=== PATIENT | male | born 1945 | race Caucasian/White ===

== ENCOUNTER → 2024-02-19 12:44 | Outpatient (REF) | payer MEDICARE, OTHER, SELFPAY | LOC: RAD 12:44 | PROVIDERS: ATTENDING PHYSICIAN Family Medicine | DX: M25.473 Effusion, unspecified ankle (principal); I83.893 Varicose veins of bilateral lower extremities with other complications | CPT/HCPCS: 93970 ==

== ENCOUNTER 2024-06-08 16:24 | Inpatient (IN) | payer MEDICARE, OTHER, SELFPAY ==
[2024-06-08] VITALS (11 sets, daily range): BP systolic 107–173; BP diastolic 52–88; BMI 28.8; BMI 27.8
[2024-06-08 10:42] LABS: % Basophils 0.4 % (0-2); % Immature Granulocytes 0.7 % (0-0.5); % Monocytes 8.3 % (1.7-9.3); % Neutrophils 82.6 % (42.2-75.2); Absolute Immature Granulocytes 0.1 10^3/uL (0-0.05); Absolute Lymphocytes 0.8 10^3/uL (1.2-3.4); Absolute Monocytes 0.8 10^3/uL (0.1-0.6); Absolute Neutrophils 7.9 10^3/uL (1.4-6.5); Hematocrit 46.7 % (39.0-52.0); Hemoglobin 15.5 g/dL (13.0-18.0); Mean Corp Hgb Conc. 33.2 g/dL (33.0-37.0); Mean Corpuscular Hgb 34.4 pg (27.0-31.0); Mean Corpuscular Volume 103.8 fL (80.0-94.0); Mean Platelet Volume 10.8 fL (7.4-10.4); Nucleated Red Blood Cells % 0 % (-); Platelet Count 151 10^3/uL (130-400); Red Cell Dist. Width 13.3 % (11.5-14.5); White Blood Cell Count 9.6 10^3/uL (4.8-10.8)
[2024-06-08 10:48] LABS: ALT (SGPT) 23 U/L (0-50); AST (SGOT) 29 U/L (17-59); Albumin 4.2 g/dl (3.5-5.0); Alkaline Phosphatase 34 U/L (38-126); Blood Urea Nitrogen 18 mg/dl (9-20); COVID-19 Antigen Negative (Negative); Calcium 9.2 mg/dl (8.4-10.2); Carbon Dioxide 31 mmol/L (22-30); Chloride 102 mmol/L (98-107); Estimated Creatinine Clearance 54 ml/min; Glucose 160 mg/dl (70-99); Potassium 4.4 mmol/L (3.5-5.1); Sodium 140 mmol/L (135-145); Total Bilirubin 0.5 mg/dl (0.2-1.3); Total Protein 6.8 g/dl (6.3-8.2); eGFR > 60.00
--- NOTE | 2024-06-08 11:03 | ED.GENMED ---
History of Present Illness
General
Chief Complaint: Weakness
Time Seen by Provider: 06/08/24 10:12
History of Present Illness
History of Present Illness:
78-year-old male with history of COPD presents to the emergency department via EMS for evaluation of generalized weakness for the past several days as well as tactile fever. Noted to be febrile on arrival. Patient was quite apprehensive to come to
the hospital today as he did not wish to be evaluated however family encouraged him to seek care. He denies any nasal congestion, sore throat, cough, nausea, vomiting, dysuria, or urinary urgency. Family is concerned that he has had significant
difficulty walking due to leg weakness.
Review of Systems
Review of Systems
Allergies reviewed?: Yes
All Other Systems: ROS reviewed and negative except as documented in HPI and ROS
Phy Exam
Physical Exam
Physical Exam:
GEN: Well appearing, NAD, WDWN
Eyes: PERRLA, EOMs intact, no scleral icterus
HENT: NCAT, oral mucosa moist, no JVD, no cervical adenopathy.
Lungs: CTAB, no wheezes, rales, rhonchi, normal chest wall excursion
Cardiac: Mildly tachycardic, regular
Abdomen: S, NT, ND, NABS, no masses or hepatosplenomegaly
Neuro: AO x 3
MSK: No gross deformity or ecchymosis. No edema. No digital clubbing
Skin: No rashes, petechiae. Normal color, no pallor or jaundice.
Psych: Calm, cooperative, proper hygiene
Sepsis
Sepsis Screening
Sepsis Assessment: Sepsis Ruled Out
Sepsis Screen
Sepsis Screen: Sepsis Ruled Out
Date: 06/08/24
Time: 14:59
Course
Orders/Labs/Results
Orders:
Orders
06/08/24 10:12
Electrocardiogram (*1) Urgent
Reason for Study: Fatigue / Weakness
EKG- Treatment ONCE
06/08/24 10:25
COVID-19 Antigen Urgent
Source: Nasal Swab
Complete Blood Count/With Diff Urgent
Comprehensive Metabolic Panel Urgent
Influenza A+B Rapid Molecular Urgent
VASILIY Source: Nasal Swab
Specimen Description:
06/08/24 10:27
CR Chest - 2 Views Urgent
Comment:
Reason For Exam: fever
06/08/24 12:26
Acetaminophen [Tylenol] 650 mg .ROUTE .STK-MED ONE
06/08/24 12:27
Acetaminophen [Tylenol] 650 mg PO NOW STA
06/08/24 12:30
Urinalysis Reflex To Culture Urgent
Date Specimen was Collected: 06/08/24
Time Specimen was Collected: 12:24
Urine Microscopic Reflex Cult Urgent
Urine Culture Urgent
VASILIY Source: U
Specimen Description:
Date Specimen was Collected: 06/08/24
Time Specimen was Collected: 12:24
06/08/24 14:35
CefTRIAXone [Rocephin] 1,000 mg IV NOW STA
Abnormal Lab Results
06/08/24 06/08/24
10:25 12:30
RBC 4.50 L 10^6/uL
(4.70-6.10)
MCV 103.8 H fL
(80.0-94.0)
MCH 34.4 H pg
(27.0-31.0)
MPV 10.8 H fL
(7.4-10.4)
Abs Immat Gran (auto) 0.1 H 10^3/uL
(0-0.05)
Absolute Neuts (auto) 7.9 H 10^3/uL
(1.4-6.5)
Absolute Lymphs (auto) 0.8 L 10^3/uL
(1.2-3.4)
Absolute Monos (auto) 0.8 H 10^3/uL
(0.1-0.6)
Immature Gran % 0.7 H %
(0-0.5)
Neutrophils % 82.6 H %
(42.2-75.2)
Lymphocytes % 8.0 L %
(20.5-51.1)
Carbon Dioxide 31 H mmol/L
(22-30)
Glucose 160 H mg/dl
(70-99)
Alkaline Phosphatase 34 L U/L
(38-126)
Leukocyte Esterase Rfl 2+ A
(Negative)
Urine WBC (Reflex) 21-25 A /HPF
(0-5)
Urine Bacteria (Reflex) Many A
(Negative)
06/08/24 10:25
06/08/24 10:25
Vital Signs
Initial and Last Documented VS:
Initial Vital Signs
Temp Pulse Resp BP Pulse Ox
100.0 F 96 20 124/88 96
06/08/24 10:13 06/08/24 10:13 06/08/24 10:13 06/08/24 10:13 06/08/24 10:13
Last Documented Vital Signs
Temp Pulse Resp BP Pulse Ox
100.0 F 87 17 159/83 94
06/08/24 10:13 06/08/24 14:15 06/08/24 14:15 06/08/24 14:00 06/08/24 14:15
MDM/Problems Addressed
MDM/Problems Addressed:
Patient's labs are for the most part reassuring however UA is consistent with UTI. Given that he is febrile and has significant weakness with ambulation we will admit for IV antibiotics
*Critical Care Note
Total Time (30-74mins, 75-104mins- exclusive of procedures): Not Applicable
ED Attending Note
-
Portions of this chart may have been created with voice recognition software.� Occasional wrong word or��sound alike� substitutions may have occurred due to the inherent limitations of voice recognition software.
Discharge Plan
Departure
Patient Disposition: Admit
Date of Disposition: 06/08/24
Time of Disposition: 14:59
Admit to: Med/Surg
Presentation/result/management discussed w/ accepting MD/DO: Hospitalist
Discharge Problem:
Urinary tract infection
Prescriptions:
No Action
albuterol sulfate [ProAir HFA] 90 mcg/actuation Hfa Aerosol Inhaler
2 puff INHALATION 6XD PRN (Reason: sob)
Anoro Ellipta 62.5-25 mcg/actuation Blister With Device
1 inh INHALATION DAILY
acetaminophen 500 mg Tablet
1,000 mg PO Q6H PRN (Reason: PAIN)
folic acid 1 mg Tablet
1 mg PO DAILY
azelastine 137 mcg (0.1 %) Aerosol,[place]
1 spray INTRANASAL BID PRN (Reason: CONGESTION)
cholecalciferol (vitamin D3) [Vitamin D3] 25 mcg (1,000 unit) Capsule
25 mcg PO DAILY
Referrals:
David Rizzo MD [Family Provider] -
Interventions
Interventions:
*Risk Screen - Suicide Last Done: 06/08/24 10:13
*General Assessment Last Done: 06/08/24 10:13
*Neglect/Abuse Screening Last Done: 06/08/24 10:13
ED- Fall Risk Assessment Last Done: 06/08/24 10:41
*ED COVID-19 Vaccine History Last Done: 06/08/24 10:13
ED- Cardiac Assessment Last Done: 06/08/24 10:41
ED- Neurological Assessment Last Done: 06/08/24 10:41
ED- Pulmonary Assessment Last Done: 06/08/24 10:41
Discharge Date and Time
Print Language: SAMI
[2024-06-08] MEDS: TYLENOL 650 MG PO ×2 (12:27→19:59)
[2024-06-08 13:10] LABS: Urine Albumin Trace (Neg - Trace); Urine Bilirubin Negative (Negative); Urine Character Clear (Clear); Urine Color Yellow; Urine Glucose Negative (Negative); Urine Ketone Negative (Negative); Urine Leukocyte 2+ (Negative); Urine Nitrite Negative (Negative); Urine Occult Blood Negative (Negative); Urine Specific Gravity 1.015 (<1.030); Urine Urobilinogen Negative (Neg - 1+)
[2024-06-08 14:32] LABS: Urine Mucus Few
[2024-06-08 14:33] LABS: Urine Bacteria Many (Negative); Urine Red Blood Cell 0-2 /HPF (0-2); Urine Squamous Cell 0-2 /LPF (Few); Urine White Cell 21-25 /HPF (0-5)
[2024-06-08] MEDS: ROCEPHIN 1000 MG IV (14:55)
--- NOTE | 2024-06-08 15:43 | HPS.HSE ---
Addendum entered and electronically signed by Shiraz Sin MD 06/08/24 16:25:
78-year-old male with a past medical history of BPH, prostate cancer status post TURP and radiation, HTN, nicotine dependency, and daily alcohol presents with fever, generalized weakness for 3-4 days. Denies dysuria, abdominal pain, or vomiting.
He does report pain in his chin for 3-4 days, he had an appointment to go to the dentist. His urine analysis is concerning for a urinary tract infection. Will treat with Rocephin. He has dental caries in the lower mandible near his chin, will add
Flagyl for anaerobic coverage. Consult PT/OT.
I have personally seen and examined the patient, and agree with the plan of care as documented by TORRES Mensah.
Advance care planning discussed, patient is a full code.
All other issues as outlined by the advanced care practitioner.
Total time spent to see the patient on the floor, examine the patient, review data and lab results, discuss treatment plan with patient, nursing staff around 60 minutes.
Original Note:
Family Physician
-
Family Physician: David Rizzo MD
Chief Complaint
-
generalized weakness
History of Present Illness
78-year-old male with history of COPD, hypertension presented to us with generalized weakness and low-grade fever for 3 to 4 days. Patient also complained of jaw pain for past 4 days. Denied headache, dizziness, syncopal episode. Patient does
have a smoker's cough. Denied chest pain or short of breath. Patient denied abdominal pain, nausea, vomiting, diarrhea. Patient denied dysuria materia. Last night he had urinary urgency.
noted to have UTI, received IV ceftriaxone. admitting for further management.
Medical History
Past Medical History
Past Medical History: Reports Other
Additional Past Medical History:
Prostate cancer
Hyperlipidemia
Pulmonary nodules
BPH
Tricuspid wall insufficiency
Hypertension
Pulmonary emphysema
COPD
Past Surgical History: Reports Other
Additional Past Surgical History:
Vasectomy
Bilateral total knee replacement
Bilateral cataract surgery
TURP
Social History
Tobacco: Smoker (20 cigars)
Alcohol: Daily (3 drinks of vodka)
Drug: None
Personal:
Living: With Family
Family History
Family History: Not pertinent
Allergies / Home Medications
Allergies reflects when Allergies were last updated in [facility].
Home Medications with original date entered in [facility]
Allergy/Medication List:
Allergies
Allergy/AdvReac Type Severity Reaction Status Date / Time
No Known Allergies Allergy Verified 06/08/24 10:12
Home Medications
umeclidinium 62.5 mcg-vilanterol 25 mcg/actuation powdr for inhalation (Anoro Ellipta) 1 inh inhalation R DAILY Lung/Breathing Issues 02/15/23
acetaminophen 650 mg tablet,extended release (Tylenol Arthritis Pain) 1,300 mg PO [id number] PRN mild pain 06/08/24
cholecalciferol (vitamin D3) 10 mcg (400 unit) tablet (Vitamin D3) 10 mcg PO DAILY 06/08/24
cyanocobalamin (vitamin B-12) 1,000 mcg tablet 1,000 mcg PO DAILY 06/08/24
folic acid 1 mg tablet 1 mg PO DAILY 06/08/24
hydrochlorothiazide 25 mg tablet 25 mg PO DAILY 06/08/24
losartan 50 mg tablet 50 mg PO DAILY 06/08/24
Review of Systems
-
Constitutional: Reports Fever and Fatigue
EENT: Reports No Symptoms
Respiratory: Reports No Symptoms
Cardiac: Reports No Symptoms
Abdomen/GI: Reports No Symptoms
: Reports Urgency
Musculoskeletal: Reports No Symptoms
Skin: Reports No Symptoms
Neurological: Reports Weakness
Endocrine: Reports No Symptoms
Hematologic/Lymphatic: Reports No Symptoms
Psych: Reports No Symptoms
Physical Exam
Vital Signs
Vital Signs
Temp Pulse Resp BP Pulse Ox
100.6 F H 85 30 147/69 94
06/08/24 15:03 06/08/24 15:00 06/08/24 15:00 06/08/24 15:00 06/08/24 15:00
Physical Exam
General: Well Developed, Well Nourished and No Apparent Distress
HEENT: NormoCephalic, Moist mucous membranes and Atraumatic
Respiratory: Clear
Cardiac: S1/S2 and Regular Rhythm; No Murmur or Rub
GI: Soft, Non Tender, Non Distended and Normal Bowel Sounds; No Organomegaly
Rectal: Deferred by Provider
Musculoskeletal: No Clubbing, No Cyanosis and No Edema
Skin: No Rash
Neuro: AO x 3 and Nonfocal/grossly intact
Psych: Calm
Laboratory Results
-
06/08/24 10:25
06/08/24 10:25
Laboratory Results
Total Bilirubin 0.5 mg/dl (0.2-1.3) 06/08/24 10:25
AST 29 U/L (17-59) 06/08/24 10:25
ALT 23 U/L (0-50) 06/08/24 10:25
Alkaline Phosphatase 34 U/L (38-126) L 06/08/24 10:25
Troponin I Cancelled 06/08/24 10:12
Data Reviewed
-
Diagnostic Radiology: Report Reviewed by me
Lab Data: Labs Reviewed by me
Impression/Plan
-
# Fever likely from UTI
-Urine culture pending
-Ceftriaxone continued
#jaw pain
-ctm
# History of COPD
-Not in acute exacerbation
-Breo continued
# Essential hypertension
HCTZ , losartan continued with hold parameter
# Nicotine dependence
-Smokes cigar
-Denied nicotine patch
# Alcohol dependence
-Drinks 3-4 drinks a day
-Alcohol protocol initiated
-Monitor MSAs score
# DVT prophylaxis
-Lovenox subcu
# CODE STATUS
-Full code
[2024-06-08 17:08] LABS: Erythrocyte Sed Rate 15 mm/hour (0-20)
[2024-06-08 17:12] LABS: Magnesium 1.6 mg/dl (1.6-2.3)
[2024-06-08] MEDS: THIAMINE INJECTION 200 MG IV (19:59)
[2024-06-08] MEDS: FLAGYL 500 MG PO (19:59)
[2024-06-08] MEDS: LOVENOX 40 MG SC (19:59)
[2024-06-09 03:27] LABS: Amphetamines Negative (Negative); Barbiturates Negative (Negative); Benzodiazepines Negative (Negative); Buprenorphine Negative (Negative); Cocaine Negative (Negative); Marijuana Negative (Negative); Methadone Negative (Negative); Methamphetamines Negative (Negative); Opiates Negative (Negative); Phencyclidine Negative (Negative); Tricyclic Antidepressants Negative (Negative)
[2024-06-09] MEDS: FLAGYL 500 MG PO ×3 (04:45→21:00)
[2024-06-09 07:30] VITALS: BP 146/75
[2024-06-09] MEDS: STRIVERDI RESPIMAT 2 PUFF INH (07:45)
[2024-06-09] MEDS: SPIRIVA RESPIMAT 2.5 MCG 2 PUFF INH (07:45)
[2024-06-09] MEDS: TYLENOL 650 MG PO ×3 (08:09→23:48)
[2024-06-09] MEDS: ORETIC 25 MG PO (08:11)
[2024-06-09] MEDS: FOLVITE 1 MG PO (08:11)
[2024-06-09] MEDS: VITAMIN B-12 1000 MCG PO (08:12)
[2024-06-09] MEDS: COZAAR 50 MG PO (08:12)
[2024-06-09] MEDS: THIAMINE INJECTION 200 MG IV ×2 (08:12→21:01)
--- NOTE | 2024-06-09 08:52 | W.PN.HOSP.TC ---
Today's Communication/Plan
-
Continue antibiotics, consult ID
Assessment / Plan
Assessment / Plan
HPI: 78-year-old male with a past medical history of BPH, prostate cancer status post TURP and radiation, HTN, nicotine dependency, and daily alcohol presents with fever, generalized weakness for 3-4 days. Denies dysuria, abdominal pain, or
vomiting. He does report pain in his chin for 3-4 days, he had an appointment to go to the dentist. His urine analysis is concerning for a urinary tract infection. Will treat with Rocephin. He has dental caries in the lower mandible near his
chin, will add Flagyl for anaerobic coverage. Consult PT/OT.
#Fever
Urinary tract infection ruled out, urine culture growing tariq
Check blood culture, change antibiotics to Zosyn and Flagyl, consult ID
Trend fever and white count
#Chin pain
#Dental caries
Patient missed his appointment with his dentist on 06/08/2024
Flagyl added for anaerobic coverage
#Weakness
PT recommends HH
# History of COPD
-Not in acute exacerbation
-Breo continued
# Essential hypertension
HCTZ, losartan continued with hold parameter
# Nicotine dependence
-Smokes cigar
-Decline nicotine patch
# Alcohol dependence
-Drinks 3-4 drinks a day
-Alcohol protocol initiated
-Monitor MSAs score
DVT prophylaxis�subcu Lovenox
Full code
Total time spent to see the patient on the floor, examine the patient, review data and lab results, discuss treatment plan with patient, nursing staff around 45 minutes.
Physical Exam
General: No acute distress
HEENT: Normocephalic, Atraumatic, EOMI, MMM
Chin is tender to palpation
Respiratory: Clear to Auscultation bilaterally
Cardiac: Normal S1/S2, Regular Rate and Rhythm
GI: Soft, Nontender, Nondistended, Normal Bowel Sounds
Extremities: No Clubbing, Cyanosis, or Edema
Neuro: Nonfocal/Grossly Intact
Psych: Calm, Cooperative
Derm: No Visible lesions
Anticipated Discharge: 24 - 48 hours
Subjective/Interval History
-
Date of Service: June 09, 2024
Patient continues to have chin tenderness. Weakness improved. No fever, no vomiting.
Objective Data
-
Labs:
Laboratory Results
06/09/24
07:26
Sodium Pending
Potassium Pending
Chloride Pending
Carbon Dioxide Pending
BUN Pending
Creatinine Pending
Glucose Pending
Calcium Pending
Vital Signs:
Vital Signs
Temp Pulse Resp BP Pulse Ox
100.5 F H 71 15 146/75 95
06/09/24 07:30 06/09/24 07:53 06/09/24 07:53 06/09/24 07:30 06/09/24 07:53
I&O
06/08/24 06/09/24 06/10/24
06:59 06:59 06:59
Output Total 500 / 500
Balance -500 / -500
[2024-06-09 08:54] LABS: Blood Urea Nitrogen 17 mg/dl (9-20); Calcium 8.6 mg/dl (8.4-10.2); Carbon Dioxide 28 mmol/L (22-30); Chloride 99 mmol/L (98-107); Estimated Creatinine Clearance 60 ml/min; Glucose 139 mg/dl (70-99); Magnesium 1.6 mg/dl (1.6-2.3); Phosphorus 3.2 mg/dl (2.5-4.5); Potassium 4.1 mmol/L (3.5-5.1); Sodium 137 mmol/L (135-145); eGFR > 60.00
[2024-06-09] MEDS: LIDOCAINE 4% PATCH 2 PATCH TOPICAL (09:13)
--- NOTE | 2024-06-09 10:43 | CM ---
Pt seen bedside. Initial assessment completed
Pt lives w/ spouse in an in law suite attached to daughter's and son-in-law's home. There are no steps to enter the suite as it is attached to the home.
Pt is independent, denies any devices to ambulate. Denies any DME in the home for support.
Pt states he has been off balance some. PT/OT will evaluate today
Pt engaged in OP rehab after knee replacements , denies any VN/PT services in the past
Denies financial insecurities
Address, point of contact and insurances verified
PCP: Dr. David Rizzo
Pharmacy: [facility] [place]
CM consulted for substance abuse counseling. Per chart, pt drinks daily, approximately 3 drinks per day
Discussed w/ pt any needs of resources or support at this time, pt denies this stating his is his resource. Pt denies negative effects from drinking and does not identify himself as having a drinking problem. CM encouraged pt to consult CM if
he identifies a need at a later time.
Plan: CM will await PT/OT eval to cont w/ d/c planning
[2024-06-09 12:50] VITALS: BP 156/80; PULSE 86
[2024-06-09 12:53] VITALS: BP 156/80; PULSE 84; O2SAT 96
[2024-06-09] MEDS: STERILE WATER FOR INJECTION 10 ML IV (14:13)
[2024-06-09] MEDS: ROCEPHIN 1000 MG IV (14:14)
[2024-06-09 15:08] VITALS: BP 137/67
[2024-06-09] MEDS: ZOSYN 50 IV ×2 (17:10→21:00)
[2024-06-09] MEDS: LOVENOX 40 MG SC (17:11)
[2024-06-09 23:40] VITALS: BP 148/74
[2024-06-10] MEDS: FLAGYL 500 MG PO ×2 (03:26→11:07)
[2024-06-10] MEDS: ZOSYN 50 IV ×2 (03:26→09:54)
[2024-06-10] MEDS: SPIRIVA RESPIMAT 2.5 MCG 2 PUFF INH (07:50)
[2024-06-10] MEDS: STRIVERDI RESPIMAT 2 PUFF INH (07:50)
[2024-06-10 07:52] VITALS: BP 135/74
[2024-06-10 07:59] LABS: % Basophils 0.4 % (0-2); % Eosinophils 0.5 % (0-6); % Immature Granulocytes 0.3 % (0-0.5); % Lymphocytes 12.6 % (20.5-51.1); % Monocytes 12.8 % (1.7-9.3); % Neutrophils 73.4 % (42.2-75.2); Absolute Eosinophils 0.1 10^3/uL (0-0.7); Absolute Lymphocytes 1.2 10^3/uL (1.2-3.4); Absolute Monocytes 1.3 10^3/uL (0.1-0.6); Absolute Neutrophils 7.2 10^3/uL (1.4-6.5); Hematocrit 42.3 % (39.0-52.0); Hemoglobin 14.2 g/dL (13.0-18.0); Mean Corp Hgb Conc. 33.6 g/dL (33.0-37.0); Mean Corpuscular Hgb 33.6 pg (27.0-31.0); Mean Corpuscular Volume 100.2 fL (80.0-94.0); Mean Platelet Volume 10.7 fL (7.4-10.4); Nucleated Red Blood Cells % 0 % (-); Platelet Count 166 10^3/uL (130-400); Red Blood Cell Count 4.22 10^6/uL (4.70-6.10); Red Cell Dist. Width 12.9 % (11.5-14.5); White Blood Cell Count 9.8 10^3/uL (4.8-10.8)
[2024-06-10] MEDS: VITAMIN B-12 1000 MCG PO (08:20)
[2024-06-10] MEDS: FOLVITE 1 MG PO (08:20)
[2024-06-10] MEDS: COZAAR 50 MG PO (08:20)
[2024-06-10] MEDS: THIAMINE INJECTION 200 MG IV (08:20)
[2024-06-10] MEDS: ORETIC 25 MG PO (08:21)
[2024-06-10] MEDS: LIDOCAINE 4% PATCH TOPICAL ×2 (08:21→08:31)
[2024-06-10 08:30] LABS: Procalcitonin 0.24 ng/ml (0.0-0.25)
[2024-06-10 08:42] LABS: Erythrocyte Sed Rate 25 mm/hour (0-20)
--- NOTE | 2024-06-10 08:43 | W.PN.HOSP.TC ---
Today's Communication/Plan
-
Cleared by ID for discharge today
Assessment / Plan
Assessment / Plan
HPI: 78-year-old male with a past medical history of BPH, prostate cancer status post TURP and radiation, HTN, nicotine dependency, and daily alcohol presents with fever, generalized weakness for 3-4 days. Denies dysuria, abdominal pain, or
vomiting. He does report pain in his chin for 3-4 days, he had an appointment to go to the dentist. His urine analysis is concerning for a urinary tract infection. Will treat with Rocephin. He has dental caries in the lower mandible near his
chin, will add Flagyl for anaerobic coverage. Consult PT/OT.
#Fever
#Otogenic infection
#Dental caries
#Chin pain
COVID/influenza negative. Urinary tract infection ruled out, urine culture growing mixed tariq
Appreciate ID input, patient has otogenic infection
IV antibiotics changed to Augmentin, recommend to continue for 12 more days
Cleared by ID for discharge, patient has been instructed to follow-up with his dentist as soon as possible
#Weakness
PT recommends HH
# History of COPD
-Not in acute exacerbation
-Breo continued
# Essential hypertension
HCTZ, losartan continued with hold parameter
# Nicotine dependence
-Smokes cigar
-Decline nicotine patch
# Alcohol dependence
-Drinks 3-4 drinks a day
-Alcohol protocol initiated
-Monitor MSAs score
DVT prophylaxis�subcu Lovenox
Full code
Physical Exam
General: No acute distress
HEENT: Normocephalic, Atraumatic, EOMI, MMM
Chin is tender to palpation
Respiratory: Clear to Auscultation bilaterally
Cardiac: Normal S1/S2, Regular Rate and Rhythm
GI: Soft, Nontender, Nondistended, Normal Bowel Sounds
Extremities: No Clubbing, Cyanosis, or Edema
Neuro: Nonfocal/Grossly Intact
Psych: Calm, Cooperative
Derm: No Visible lesions
Anticipated Discharge: Today
Subjective/Interval History
-
Date of Service: June 09, 2024
Patient continues to have chin tenderness. No pain without touching. Continues to have fevers. Weakness improved. No vomiting.
Objective Data
-
Labs:
Laboratory Results
06/09/24
07:26
Sodium 137
Potassium 4.1
Chloride 99
Carbon Dioxide 28
BUN 17
Creatinine 0.9
Glucose 139 H
Calcium 8.6
Vital Signs:
Vital Signs
Temp Pulse Resp BP Pulse Ox
99.4 F 86 18 137/67 97
06/09/24 15:08 06/09/24 15:08 06/09/24 15:08 06/09/24 15:08 06/09/24 15:08
I&O
06/08/24 06/09/24 06/10/24
06:59 06:59 06:59
Output Total 500 / 500
Balance -500 / -500
[2024-06-10] MEDS: TYLENOL 650 MG PO (09:54)
--- NOTE | 2024-06-10 11:51 | CON.ID ---
Consultation
-
Date/Time Consultation Requested: 06/09/24 15:42
Date/Time Consultation Performed: 06/10/24 11:51
Requesting Provider: Dr Sin
Performing Provider: Dr Bonilla
Reason for Consultation: fever
Chief Complaint / Past History
Chief Complaint
fever
History of Present Illness
Mr Cartagena is a 78 year old male with h/o of prostate cancer s/p TURP/radiation, COPD, daily etoh use who presented cata 06/08 for fever, weakness for 3-4 days. Report pain in the chin for 3-4 days, pending assessment with his dentist. No headache.
+chronic cough. No chest pain, shortness of breath, vomiting, abdominal pain or dysuria. Does report 1 day of urinary urgency. Has caries in the lower mandible. 'I have bad oral hygiene, so I see my dentist every 6 months.'
Since arrival here intermittent fevers to 101.1, bp stable, wbc initially 9.6, hgb 15, plt 151, L shift was noted on arrival resolved today, ESR initially 15 now 25, cr 0.9, crp initially 82 now 184, procalc 0.24, t bili 0.5, ast 29, alt 23, alk
phos 34, ua 21-25 wbc/hpf, covid ag negative, CXR no acute findings, COPD, a single blood culture was sent, urine culture 100K mixed tariq, reports swelling markedly improved, no discrete fluctuant lesion, currently on zosyn and metronidazole
Past History
Additional Past Medical History:
Prostate cancer
Hyperlipidemia
Pulmonary nodules
BPH
Tricuspid wall insufficiency
Hypertension
Pulmonary emphysema
COPD
Additional Past Surgical History:
Vasectomy
Bilateral total knee replacement
Bilateral cataract surgery
TURP
Allergy History:
No Known Allergies Allergy (Verified 06/08/24 10:12)
Medications Reviewed: Yes
Social History
Tobacco: Smoker
Alcohol: Daily (3 vodka drinks daily)
Drug: None
Family History
Family History: Not Pertinent
Review of Systems
Review of Systems
General: Fever
All systems: All other systems were reviewed and were negative
Vital Signs
Temp Pulse Resp BP Pulse Ox
99.2 F 71 16 135/74 96
06/10/24 11:30 06/10/24 07:53 06/10/24 07:53 06/10/24 08:20 06/10/24 07:53
Physical Exam
Physical Exam
Constitutional: No Acute Distress
Head: Other (minimal submental swelling, tenderness, erythema; no fluctuance; alta on the L mandibular tooth noted; excessive plaque)
Cardiovascular: Regular Rate and S1/S2; Negative Murmur or Rub
Pulmonary: Clear and Symmetric; Negative Wheezes, Rales or Rhonchi
Gastrointestinal: Soft, Non Tender, Non Distended and Normal Bowel Sounds
Skin: Warm and Dry; Negative Rash or Jaundice
Lab / Diagnostic Study Results
06/10/24 07:46
06/09/24 07:26
Abs Immat Gran (auto) 0.0 10^3/uL (0-0.05) 06/10/24 07:46
Absolute Neuts (auto) 7.2 10^3/uL (1.4-6.5) H 06/10/24 07:46
Absolute Lymphs (auto) 1.2 10^3/uL (1.2-3.4) 06/10/24 07:46
Absolute Monos (auto) 1.3 10^3/uL (0.1-0.6) H 06/10/24 07:46
Absolute Basos (auto) 0.0 10^3/uL (0-0.2) 06/10/24 07:46
Immature Gran % 0.3 % (0-0.5) 06/10/24 07:46
Neutrophils % 73.4 % (42.2-75.2) 06/10/24 07:46
Lymphocytes % 12.6 % (20.5-51.1) L 06/10/24 07:46
Monocytes % 12.8 % (1.7-9.3) H 06/10/24 07:46
Eosinophils % 0.5 % (0-6) 06/10/24 07:46
Basophils % 0.4 % (0-2) 06/10/24 07:46
ESR 25 mm/hour (0-20) H 06/10/24 07:46
C-Reactive Protein 184.50 mg/L (0.0-10.00) H 06/10/24 07:46
Procalcitonin 0.24 ng/ml (0.0-0.25) 06/10/24 07:46
Ur Squamous Epith Cells 0-2 /LPF (Few) 06/08/24 12:30
Microbiology Results
Micro:
06/09/24 16:25 Blood Culture - Pending
Blood/Venous
06/08/24 12:30 Urine Culture - Final
Urine
06/08/24 10:25 Influenza Types A & B (BETH) - Final
Nasal Swab Negative for Influenza A & B, NAAT
Negative results must be combined with clinical observations
and patient history.
Nucleic Acid Amplification test (NAAT)performed on the
[employer] platform.
Assessment / Plan
Odontogenic Infection - improving
Known alta L mandible
- panellipse
- send second set of blood cultures - low clinical suspicion
- switched to augmentin x 12 more days
- follow up with his dentist within the week; post xray stable for dc from ID perspective
[2024-06-10] MEDS: AUGMENTIN 875 MG/125 MG 1 TABLET PO (12:44)
--- NOTE | 2024-06-10 15:40 | W.DCSUMMARY ---
Discharge Summary
Discharge Data
Date of Admission: 06/08/24
Date of Discharge: 06/10/24
-
Pending Results: No
Hospital Course
Discharge diagnosis:
Fever
Otogenic infection
Chin pain
Dental caries
Weakness
Chronic obstructive pulmonary disease
Essential hypertension
Nicotine dependency
Daily alcohol use
Consults: ID
Orthopantogram:
The patient is partially edentulous. No suspicious periapical lucencies. There are radicular cysts along the left maxillary premolars. Dental amalgam present. No displaced fractures. No suspicious calcifications seen to suggest sialolithiasis.
Visualized sinuses appear clear.
Hospital course:
78-year-old male with a past medical history of BPH, prostate cancer status post TURP and radiation, HTN, nicotine dependency, and daily alcohol use presented with fever, and generalized weakness for 3-4 days. Patient also complained of chin pain.
He has dental caries, and was supposed to see his dentist on the day of admission. Initially he was started on Rocephin for possible urinary tract infection. Flagyl was added for concern of a dental infection. Patient's urine culture returned as
normal tariq.
He continued to have fevers. Patient was transitioned from Rocephin to Zosyn for more broad-spectrum coverage. He was seen in conjunction with ID, who suspects otogenic infection as the cause of his fever. Orthopantogram was negative for abscess.
He was seen by PT, who recommended home care.
He is medically stable and cleared by ID for discharge on Augmentin for 12 more days. He needs to follow-up with his dentist as soon as possible, and his primary care doctor in 1 week.
Disposition: Home with home care
Discharge planning: Required 39 minutes
Discharge Plan
-
Patient Disposition: Home with Home Care
Discharge Diagnosis/Procedures: Fever from dental infection, weakness, urinary tract infection ruled out
Condition: Good
Diet: Regular
Activity: As tolerated
Driving Restrictions: As prior to admission
Activity Restrictions/Additional Instructions:
Please see your dentist as soon as possible.
Please follow-up with your primary care doctor in 1 week.
Referrals:
David Rizzo MD [Family Provider] - in one week
Prescriptions:
New
amoxicillin-pot clavulanate 875-125 mg Tablet
1 tab PO Q12 12 Days Qty: 24 0RF
Continued
Anoro Ellipta 62.5-25 mcg/actuation Blister With Device
1 inh INHALATION R DAILY
losartan 50 mg Tablet
50 mg PO DAILY
cyanocobalamin (vitamin B-12) 1,000 mcg Tablet
1,000 mcg PO DAILY
acetaminophen [Tylenol Arthritis Pain] 650 mg Tablet Extended Release
1,300 mg PO [id number] PRN (Reason: mild pain)
folic acid 1 mg Tablet
1 mg PO DAILY
hydrochlorothiazide 25 mg Tablet
25 mg PO DAILY
cholecalciferol (vitamin D3) [Vitamin D3] 10 mcg (400 unit) Tablet
10 mcg PO DAILY
Discharge Orders:
Discharge Patient (As Directed); Ordered 06/10/24
Ordered By: Shiraz Sin
Discharge Date and Time
Discharge Date/Time: 06/10/24 16:56
Print Language: NAMIBIAN
--- NOTE | 2024-06-10 15:54 | CM ---
Per hospitalist, pt to d/c today
PT/OT recommended home PT vs OP therapy.
Discussed w/ pt at bedside. Per pt he declines home PT or OP stating he will go back to the gym once he is home
Spouse will transport at d/c
IMM reviewed, pt given copy. Copy placed in chart
Plan: Home; no needs
[2024-06-10 16:11] VITALS: BP 126/71
--- NOTE | 2024-06-10 16:53 | PTCARENOTE ---
Pt positive for Flu. Report given to 4 akash RN. Pt transferred to room 431 for private room.
== END 2024-06-10 16:56 | disposition home or self-care (01) | DRG 159 ==
LOC: 4 EAST ACU 16:24
PROVIDERS: Physician Assistant; Registered Nurse; ADMITTING PHYSICIAN Family Medicine; EMERGENCY PHYSICIAN Emergency Medicine; FAMILY PHYSICIAN Student in an Organized Health Care Education/Training Program; OTHER PHYSICIAN Student in an Organized Health Care Education/Training Program
DX: K04.7 Periapical abscess without sinus (principal); K02.9 Dental caries, unspecified; F17.290 Nicotine dependence, other tobacco product, uncomplicated; I10 Essential (primary) hypertension; F10.20 Alcohol dependence, uncomplicated; J44.89 Other specified chronic obstructive pulmonary disease; Z11.52 Encounter for screening for COVID-19
CPT/HCPCS: 70355; 71046; 80048; 80053; 80306; 81003; 81015; 83735; 84100; 84145; 85025; 85652; 86140; 87040; 87086; 87502; 87811; 93005; 94640; 96374; 97162; 97166; 99285